=== PATIENT | male | born 1950 | race Caucasian/White ===

== ENCOUNTER 2017-07-03 14:40 | Emergency (ER) | payer MEDICARE ==
[2017-07-03] MEDS ORDERED: 0.9 % SODIUM CHLORIDE 1000ML 1,000 ML IV PRN (15:23)
[2017-07-03 15:59] LABS: BASO % 0.6 % (0-6); EOS % 0.6 % (0-6); GRAN % 66.5 % (47-80); HEMOGLOBIN 16.6 gm/dl (14.0-18.0); LYMPH % 21.8 % (16-45); MEAN CELL VOLUME 84.6 fl (81-97); MEAN CORPUSCULAR HEMOGLOBIN 30.5 pg (27-33); MEAN CORPUSCULAR HGB CONC 36.1 g/dl (32-36); MEAN PLATELET VOLUME 9.6 fl (7.4-10.4); MONO % 10.5 % (0-9); PLATELET COUNT 228 K/uL (130-400); RED BLOOD COUNT 5.44 M/uL (4.40-5.70); RED CELL DISTRIBUTION WIDTH 14.3 % (11.5-14.5); WHITE BLOOD COUNT W/O DIFF 5.4 K/uL (4.2-12.2)
[2017-07-03 16:03] LABS: URINE APPEARANCE CLEAR; URINE BILIRUBIN NEGATIVE (NEGATIVE); URINE BLOOD NEGATIVE (NEGATIVE); URINE COLOR YELLOW; URINE GLUCOSE (UA) NEGATIVE (NEGATIVE); URINE KETONE TRACE (NEGATIVE); URINE LEUKOCYTE ESTERASE NEGATIVE (NEGATIVE); URINE NITRITE NEGATIVE (NEGATIVE); URINE PROTEIN TRACE (NEGATIVE); URINE UROBILINOGEN 0.2 E.U./dL (0.20 - 1.00)
[2017-07-03 16:13] LABS: URINE EPITHELIAL CELLS 0 - 2 (FEW); URINE RBC 0 - 2 (NONE SEEN); URINE WBC 0 - 2 (0-2/hpf)
[2017-07-03 16:14] LABS: URINE BACTERIA FEW; URINE CALCIUM OXALATE CRYSTALS 3+ /hpf; URINE MUCUS LIGHT
[2017-07-03 16:27] LABS: BLOOD UREA NITROGEN 22 mg/dL (8-23); CREATININE 0.7 mg/dL (0.7-1.2); EST GLOMERULAR FILTRATION RATE > 60 mL/min
[2017-07-03 16:28] LABS: TOTAL PROTEIN 8.7 g/dL (6.6-8.7)
[2017-07-03 16:30] LABS: GLUCOSE,RANDOM 107 mg/dL (74-109)
[2017-07-03 16:32] LABS: ALBUMIN 5.3 g/dL (4.0-5.0); ALKALINE PHOSPHATASE 119 U/L (40-129); ALT/SGPT 99 U/L (<41); AST/SGOT 60 U/L (10.0-50.0); LIPASE 30 U/L (13-60)
[2017-07-03 16:35] LABS: BILIRUBIN,DIRECT < 0.2 mg/dL (0-0.3)
--- NOTE | 2017-07-03 19:29 | Emergency Department Record ---
History of Present Illness - General Chief Complaint: Abdominal Pain Stated Complaint: ABD PAIN Time Seen by Provider: 07/03/17 15:17 Source: Patient, RN notes reviewed Mode of Arrival: Wheelchair - History of Present Illness Initial Comments: Discussed case with Dr. Hassan and because of the diarrhea not a complete bowl obstruction and will decided clinically on his disposition. patient wants to go home. No vomiting today. Patient has stopped the doxy 2 days already and infectious disease told him to only stay off the doxy only 2 days. Discussed risks of going home and he wants to go home. return if worse Onset/Timin -: Days(s) Location: Diffuse Severity: Moderate Quality: Sharp Consistency: Intermittent Improves With: Nothing Worsens With: Nothing Associated Symptoms: Diarrhea Treatments Prior to Arrival: Antacids - Related Data Allergies Allergy/AdvReac Type Severity Reaction Status Date / Time wool Allergy Intermediate Hives Verified 07/03/17 14:50 cephalexin AdvReac Intermediate RASH Verified 07/03/17 14:50 levofloxacin [From Levaquin] AdvReac Intermediate RASH Verified 07/03/17 14:50 Penicillins AdvReac Intermediate RASH Verified 07/03/17 14:50 Sulfa (Sulfonamide AdvReac Intermediate RASH Verified 07/03/17 14:50 Antibiotics) methadone AdvReac Double Verified 07/03/17 14:50 Vision miconazole nitrate AdvReac RASH Verified 07/03/17 14:50 [From Neosporin AF] Travel Screening - Travel/Exposure Within Last 30 Days Have you traveled within the last 30 days?: No - Travel/Exposure Within Last Year Have you traveled outside the [place] in the last year?: No - Additonal Travel Details Have you been exposed to anyone with a communicable illness?: No - Travel Symptoms Symptom Screening: None Review of Systems Reviewed: No additional complaints except as noted below Constitutional: Reports: As per HPI. Denies: Chills, Fever, Malaise, Night sweats, Weakness, Weight change Eyes: Reports: As per HPI. Denies: Eye discharge, Eye pain, Photophobia, Vision change ENT: Reports: As per HPI. Denies: Congestion, Dental pain, Ear pain, Epistaxis , Hearing loss, Throat pain Respiratory: Reports: As per HPI. Denies: Cough, Dyspnea, Hemoptysis, Stridor, Wheezes Cardiovascular: Reports: As per HPI. Denies: Arrhythmia, Chest pain, Dyspnea on exertion, Edema, Murmurs, Orthopnea, Palpitations, Paroxysmal nocturnal dyspnea, Rheumatic Fever, Syncope Endocrine: Reports: As per HPI. Denies: Fatigue, Heat or cold intolerance, Polydipsia, Polyuria Gastrointestinal: Reports: As per HPI, Abdominal pain, Diarrhea. Denies: Constipation, Hematemesis, Hematochezia, Melena, Nausea, Vomiting Genitourinary: Reports: As per HPI. Denies: Dysuria, Frequency, Hematuria, Incontinence, Retention, Testicular pain, Testicular mass, Urgency Musculoskeletal: Reports: As per HPI. Denies: Arthralgia, Back pain, Gout, Joint swelling, Myalgia, Neck pain Skin: Reports: As per HPI. Denies: Bruising, Change in color, Change in hair/ nails, Lesions, Pruritus, Rash Neurological: Reports: As per HPI. Denies: Abnormal gait, Confusion, Headache, Numbness, Paresthesias, Seizure, Tingling, Tremors, Vertigo, Weakness Psychiatric: Reports: As per HPI. Denies: Anxiety, Auditory hallucinations, Depression, Homicidal thoughts, Suicidal thoughts, Visual hallucinations Hematological/Lymphatic: Reports: As per HPI. Denies: Anemia, Blood Clots, Easy bleeding, Easy bruising, Swollen glands Past Medical History - SOCIAL HISTORY Smoking Status: Former smoker Alcohol Use: None Drug Use Detail:: Marijuana - RESPIRATORY Hx Respiratory Disorders: Yes Hx Asthma: Yes Hx COPD: Yes (emphysema) Hx Sleep Apnea: Yes (cannot use it) - CARDIOVASCULAR Hx Cardio Disorders: Yes Hx CHF: Yes (>10 years ago) Hx Edema: Yes (right leg swells) Hx Hypertension: Yes Hx Coronary Artery Disease: Yes Comment:: hyperlipidemia - NEURO Hx Neuro Disorders: Yes Hx Headaches: Yes (concussion) Hx Weakness: Yes (arron shoulders) - GI Hx GI Disorders: Yes Hx Reflux: Yes Hx Rectal Bleeding: Yes (hemorrhoids) Comment:: hemorrhoids - Hx Genitourinary Disorders: Yes Hx Bladder Problem: Yes (?blood in urine; urinary inc.) Hx Prostate Problems: Yes (turp) - ENDOCRINE Hx Endocrine Disorders: No - MUSCULOSKELETAL Hx Musculoskeletal Disorders: Yes Hx Arthritis: Yes Hx Gout: Yes - PSYCH Hx Psych Problems: Yes Hx Anxiety: Yes Hx Depression: Yes - HEMATOLOGY/ONCOLOGY Hx Hematology/Oncology Disorders: Yes Hx Cancer: Yes (skin) Hx Blood Transfusions: Yes Family Medical History Any Significant Family History?: Yes Family Hx Comment (NOT TO BE USED IN PLACE OF ITEMS BELOW): cad; cancer; brother found ?mi?; age 42 Physical Exam - General General Appearance: Alert, Oriented x3, Cooperative, Mild distress - Head Head exam: Normal inspection - Eye Eye exam: Normal appearance, PERRL Pupils: Normal accommodation - ENT ENT exam: Normal exam, Mucous membranes moist, Normal external ear exam, Normal orophraynx, TM's normal bilaterally Ear exam: Normal external inspection. negative: External canal tenderness Nasal Exam: Normal inspection. negative: Discharge, Sinus tenderness Mouth exam: Normal external inspection, Tongue normal Teeth exam: Normal inspection. negative: Dental caries Throat exam: Normal inspection. negative: Tonsillar erythema, Tonsillar exudate - Neck Neck exam: Normal inspection, Full ROM. negative: Tenderness - Respiratory Respiratory exam: Normal lung sounds bilaterally. negative: Respiratory distress - Cardiovascular Cardiovascular Exam: Regular rate, Normal rhythm, Normal heart sounds - GI/Abdominal GI/Abdominal exam: Soft, Normal bowel sounds, Tenderness (mild left upper quad pain) - Rectal Rectal exam: Deferred - exam: Deferred - Extremities Extremities exam: Normal inspection, Full ROM, Normal capillary refill. negative: Tenderness - Back Back exam: Reports: Normal inspection, Full ROM. Denies: Muscle spasm, Rash noted, Tenderness - Neurological Neurological exam: Alert, Normal gait, Oriented X3, Reflexes normal - Psychiatric Psychiatric exam: Normal affect, Normal mood - Skin Skin exam: Dry, Intact, Normal color, Warm Course Vital Signs 07/03/17 07/03/17 07/03/17 15:01 17:47 19:06 Temperature 98.1 F 97.9 F Pulse Rate 71 Pulse Rate [ 77 76 Pulse Ox Probe] Respiratory 20 18 20 Rate Blood Pressure 157/102 Blood Pressure 171/105 [Left Arm] Blood Pressure 155/91 [Right Arm] Pulse Ox 97 97 98 Medical Decision Making - Lab Data Result diagrams: 07/03/17 15:45 07/03/17 15:45 Lab Results 07/03/17 07/03/17 07/03/17 Range/Units 15:45 15:45 15:45 WBC 5.4 (4.2-12.2) K/uL RBC 5.44 (4.40-5.70) M/uL Hgb 16.6 (14.0-18.0) gm/dl Hct 46.0 (42.0-52.0) % MCV 84.6 (81-97) fl MCH 30.5 (27-33) pg MCHC 36.1 H (32-36) g/dl RDW 14.3 (11.5-14.5) % Plt Count 228 (130-400) K/uL MPV 9.6 (7.4-10.4) fl Gran % 66.5 (47-80) % Lymphocytes % 21.8 (16-45) % Monocytes % 10.5 H (0-9) % Eosinophils % 0.6 (0-6) % Basophils % 0.6 (0-6) % Sodium 142 (136-145) mmol/L Potassium 3.5 (3.4-4.5) mmol/L Chloride 100 (98-107) mmol/L Carbon Dioxide 28.0 (22-29) mmol/L Anion Gap 14.0 (7-16) BUN 22 (8-23) mg/dL Creatinine 0.7 (0.7-1.2) mg/dL Estimated GFR > 60 mL/min Random Glucose 107 (74-109) mg/dL Calcium 10.3 H (8.8-10.2) mg/dL Total Bilirubin 0.90 (0.2-1.0) mg/dL Direct Bilirubin < 0.2 (0-0.3) mg/dL AST 60 H (10.0-50.0) U/L ALT 99 H (<41) U/L Alkaline Phosphatase 119 (40-129) U/L Total Protein 8.7 (6.6-8.7) g/dL Albumin 5.3 H (4.0-5.0) g/dL Lipase 30 (13-60) U/L Urine Color Yellow Urine Appearance Clear Urine pH 5.5 (5.0-8.0) Ur Specific [place] >= 1.030 (1.002-1.030) Urine Protein Trace H (NEGATIVE) Urine Glucose (UA) Negative (NEGATIVE) Urine Ketones Trace H (NEGATIVE) Urine Blood Negative (NEGATIVE) Urine Nitrite Negative (NEGATIVE) Urine Bilirubin Negative (NEGATIVE) Urine Urobilinogen 0.2 (0.20 - 1.00) E.U./dL Ur Leukocyte Esterase Negative (NEGATIVE) Urine RBC 0 - 2 (NONE SEEN) Urine WBC 0 - 2 (0-2/hpf) Ur Epithelial Cells 0 - 2 (FEW) Calcium Oxalate Crystal 3+ /hpf Urine Bacteria Few Urine Mucus Light Disposition Clinical Impression: Adynamic ileus, Partial small bowel obstruction Disposition: Home, Self-Care Condition: (1) Good Instructions: Acute Diarrhea (ED) Additional Instructions: follow up with family Dr. Mcghee in 2-9 days if worse return to ED. clear liquids today Bannanas, rice, applesauce yogurt and toast tomorrow. norco for pain which he already has hold doxy for one more day Time of Disposition: 19:43 Quality - Quality Measures Quality Measures: N/A - Blood Pressure Screening Does Patient Have Any of the Following: No Blood Pressure Classification: Hypertensive Reading Systolic Measurement: 157 Diastolic Measurement: 102 Screening for High Blood Pressure: Patient Exclusion, Hx of HTN [G9744]
--- NOTE | 2017-07-03 19:32 | CT SCAN REPORT ---
EXAM: CT SCAN ABDOMEN/PELVIS W CONTRAST HISTORY: GENERALIZED ABDOMINAL PAIN FOR TWO DAYS. PRIOR APPENDECTOMY. TECHNIQUE: Axial CT scan of the abdomen and pelvis performed following both oral and IV contrast administration utilizing a dose of 100 mL of Omnipaque-300 as the IV contrast. COMPARISON: No prior CT with which to compare. FINDINGS: There are probably some tiny, relatively noncalcified gallstones in the dependent portion of the gallbladder. These could also be a few tiny gallbladder polyps. No additional findings to suggest acute cholecystitis currently evident. Metallic battery pack along the subcutaneous tissues of the right lateral mid abdominal wall with an associated wire extending into the spinal canal. There is mild diffuse fatty infiltration of the liver. There is a single tiny low-attenuation focus in the liver measuring only about 8 mm in size with a CT density of minus 1 consistent with a small hepatic cyst. No definite splenic, adrenal, pancreatic, or right renal mass evident. There is a small low-attenuation mass in the upper pole of the left kidney measuring only about 10 mm in size. This has an indeterminant CT density of 31 and may just be a slightly dense renal cyst. However, if not previously documented as a cyst, follow-up non-emergent MRI of the kidneys would be suggested in an effort to confirm. Surgical clips right side of the scrotum and on the scanogram probably also seen in the left side of the scrotum, presumably from prior vasectomy. Mild diverticulosis left side of the colon but no diverticulitis evident. Appendix not identified consistent with the surgical history. There is a tiny amount of free fluid in the right lower quadrant. This is nonspecific. Some apparent bullous disease in the right lung base and clinical correlation as to emphysema suggested. No free intraperitoneal air identified. Some degenerative change in the facets of the lumbar spine. Mild lumbar curve convex to the left. Oral contrast given has passed from the stomach into the small bowel but not as yet reached the distal small bowel. There is some mild disparity in caliber of the small bowel, being slightly dilated proximally up to about 3.2 cm, whereas the more distal ileum is nondistended. There is questionably a relative transition point far anteriorly in the mid abdomen. No obvious mass or other abnormality seen but, given the history of prior surgery, possibility of adhesions is raised. IMPRESSION: 1. POST-OP APPENDECTOMY, BILATERAL VASECTOMY, AND PRESUMED PAIN STIMULATOR DEVICE WITH THE ASSOCIATED WIRE EXTENDING INTO THE SPINAL CANAL. 2. MILD DIFFUSE FATTY INFILTRATION OF THE LIVER WITH A SINGLE SMALL SUBCENTIMETER LEFT LOBE HEPATIC CYST. 3. SMALL INDETERMINATE 1 CM MASS SUPERIORLY IN THE LEFT KIDNEY MAY JUST BE A RELATIVELY DENSE CYST. FOLLOW-UP NON-EMERGENT RENAL MRI SUGGESTED. 4. DEGENERATIVE CHANGE IN THE SPINE. 5. SMALL AMOUNT OF NONSPECIFIC FREE FLUID RIGHT LOWER QUADRANT. NO FREE AIR EVIDENT. 6. SMALL BOWEL DISPARITY, SOMEWHAT DILATED PROXIMALLY AND NONDILATED DISTALLY WITH PROBABLY A POINT OF TRANSITION IN THE MID ABDOMEN ANTERIORLY SUGGESTING A COMPONENT OF A SMALL BOWEL OBSTRUCTION, PERHAPS ON THE BASIS OF ADHESIONS. 7. MILD DIVERTICULOSIS LEFT SIDE OF THE COLON WITH NO DIVERTICULITIS EVIDENT. JOB NUMBER: [id number] [facility]
== END 2017-07-03 20:05 | disposition home or self-care (01) ==
LOC: ER 14:40
DX: K56.0 Paralytic ileus (principal); R19.7 Diarrhea, unspecified; Z98.890 Other specified postprocedural states
CPT/HCPCS: 99284 ×2; 83690; 85025; 80076; 80048; 81001; 87427; 87493; 74177; Q9967

== ENCOUNTER 2017-10-01 01:46 | Emergency (ER) | payer MEDICARE, BC ==
[2017-10-01] MEDS ORDERED: KETOROLAC 30 MG/ML VIAL IVP ONE (02:01)
--- NOTE | 2017-10-01 02:06 | Emergency Department Record ---
History of Present Illness - General Chief Complaint: Fever Stated Complaint: FEVER Time Seen by Provider: 10/01/17 01:48 Source: Patient Mode of Arrival: Ambulatory Limitations: No limitations - History of Present Illness Initial Comments: 67 yo male presents to ED for evaluation of fever symptoms and non-productive cough symptoms this morning. Patient also reports intermittent nausea and vomiting symptoms. Patient reports that he is currently being treated for C. Diff and UTI with Vancomycin, Macrobid, and Doxycycline per his ID provider at [facility]. Patient reports body aches and headache symptoms, denies stiff neck. Patient was seen earlier by his PCP, underwent negative CXR and influenza. MD Complaint: Fever Onset/Timin -: Days(s) Maximum Temperature: 101.3 F Temperature Source: Oral Context: Recent antibiotic use Associated Symptoms: Vomiting, Diarrhea, Headache, Nausea Treatments Prior to Arrival: None - Related Data Home Medications Medication Instructions Recorded Confirmed Last Taken Cyclobenzaprine HCl [Flexeril] 5 mg PO DAILY 10/01/17 10/01/17 Unknown Allergies Allergy/AdvReac Type Severity Reaction Status Date / Time wool Allergy Intermediate Hives Unverified 09/23/17 10:43 cephalexin AdvReac Intermediate RASH Unverified 09/23/17 10:43 levofloxacin [From Levaquin] AdvReac Intermediate RASH Unverified 09/23/17 10:43 Penicillins AdvReac Intermediate RASH Unverified 09/23/17 10:43 Sulfa (Sulfonamide AdvReac Intermediate RASH Unverified 09/23/17 10:43 Antibiotics) methadone AdvReac Double Unverified 09/23/17 10:43 Vision miconazole nitrate AdvReac RASH Unverified 09/23/17 10:43 [From Neosporin AF] Travel Screening - Travel/Exposure Within Last 30 Days Have you traveled within the last 30 days?: No - Travel Symptoms Symptom Screening: Weakness, Diarrhea, Vomiting, Chills Review of Systems Constitutional: Reports: Chills, Fever, Malaise, Weakness. Denies: Night sweats Eyes: Denies: Eye discharge, Eye pain ENT: Denies: Congestion, Ear pain Respiratory: Reports: Cough. Denies: Dyspnea Cardiovascular: Denies: Chest pain, Dyspnea on exertion Endocrine: Reports: Fatigue. Denies: Heat or cold intolerance Gastrointestinal: Reports: Nausea, Vomiting. Denies: Abdominal pain Genitourinary: Denies: Incontinence, Retention Musculoskeletal: Denies: Arthralgia, Back pain, Gout, Joint swelling Skin: Denies: Bruising, Change in color Neurological: Reports: Headache. Denies: Abnormal gait, Confusion, Seizure Psychiatric: Denies: Anxiety Hematological/Lymphatic: Denies: Anemia, Blood Clots Past Medical History - SOCIAL HISTORY Smoking Status: Former smoker Alcohol Use: None Drug Use: None - RESPIRATORY Hx Respiratory Disorders: Yes Hx Asthma: Yes Hx COPD: Yes (emphysema) Hx Sleep Apnea: Yes (cannot use it) - CARDIOVASCULAR Hx Cardio Disorders: Yes Hx CHF: Yes (>10 years ago) Hx Edema: Yes (right leg swells) Hx Hypertension: Yes Hx Coronary Artery Disease: Yes Comment:: hyperlipidemia - NEURO Hx Neuro Disorders: Yes Hx Headaches: Yes (concussion) Hx Weakness: Yes (arron shoulders) - GI Hx GI Disorders: Yes Hx Reflux: Yes Hx Rectal Bleeding: Yes (hemorrhoids) Comment:: hemorrhoids - Hx Genitourinary Disorders: Yes Hx Bladder Problem: Yes (?blood in urine; urinary inc.) Hx Prostate Problems: Yes (turp) - ENDOCRINE Hx Endocrine Disorders: No - MUSCULOSKELETAL Hx Musculoskeletal Disorders: Yes Hx Arthritis: Yes Hx Gout: Yes - PSYCH Hx Psych Problems: Yes Hx Anxiety: Yes Hx Depression: Yes - HEMATOLOGY/ONCOLOGY Hx Hematology/Oncology Disorders: Yes Hx Cancer: Yes (skin) Hx Blood Transfusions: Yes Family Medical History Any Significant Family History?: Yes Family Hx Comment (NOT TO BE USED IN PLACE OF ITEMS BELOW): cad; cancer; brother found ?mi?; age 42 Physical Exam - General General Appearance: Alert, Oriented x3, Cooperative, Moderate distress Limitations: No limitations - Head Head exam: Atraumatic, Normocephalic, Normal inspection Head exam detail: negative: Abrasion, Contusion, Little's sign, General tenderness, Hematoma, Laceration - Eye Eye exam: Normal appearance. negative: Conjunctival injection, Periorbital swelling, Periorbital tenderness, Scleral icterus - ENT Ear exam: negative: Auricular hematoma, Auricular trauma Nasal Exam: negative: Active bleeding, Discharge, Dried blood, Foreign body Mouth exam: negative: Drooling, Laceration, Tongue elevation - Neck Neck exam: Normal inspection. negative: Meningismus, Tenderness - Respiratory Respiratory exam: Normal lung sounds bilaterally. negative: Rales, Respiratory distress, Rhonchi, Stridor - Cardiovascular Cardiovascular Exam: Regular rate, Normal rhythm, Normal heart sounds - GI/Abdominal GI/Abdominal exam: Soft. negative: Rebound, Rigid, Tenderness - Rectal Rectal exam: Deferred - exam: Deferred - Extremities Extremities exam: Normal inspection. negative: Calf tenderness, Pedal edema, Tenderness - Back Back exam: Denies: CVA tenderness (R), CVA tenderness (L) - Neurological Neurological exam: Alert, Normal gait, Oriented X3 - Psychiatric Psychiatric exam: Normal affect, Normal mood - Skin Skin exam: Normal color. negative: Abrasion Type of lesion: negative: abrasion Course Vital Signs 10/01/17 01:47 Temperature 99.0 F Pulse Rate 96 H Respiratory 18 Rate Blood Pressure 167/101 Pulse Ox 97 - Reevaluation(s) Reevaluation #1: 10/01/17 02:07 CXR 09/30/17: No acute process Influenza 09/30/17: Negative Reevaluation #2: 10/01/17 02:51 Labs reviewed, WBC 17.8 with 85% neutrophils, labs are otherwise grossly unremarkable for an acute process. UA pending Patient is back from CT imaging, reports improvement in his symptoms. Reevaluation #3: 10/01/17 03:39 UA reviewed and appears negative for infections. CT Abdomen and Pelvis: No acute process Distended GB Bladder wall thickening Cholelithiasis Reevaluation #4: 10/01/17 03:52 Case was discussed with Dr. Chandler, will accept transfer at this time for further evaluation of the patient's fever symptoms. Patient was reassessed and updated on all results, has no meningeal signs on repeat examination. Will hold further antibiotics at this time as there is no clear source identified and he is already taking Vanco, Doxy, and Macrobid. Dr. Chandler in agreement with the plan of care as discussed. Medical Decision Making - Lab Data Result diagrams: 10/01/17 02:10 10/01/17 02:11 Disposition Disposition: Transfer Clinical Impression: C. difficile colitis Fever Qualifiers: Fever type: unspecified Qualified Code(s): R50.9 - Fever, unspecified Disposition: Acute Care Hospital Transfer Transfer To: of Reason For Transfer: Fever, ID consultation Accepting Physician: Ramesh Time Discussed w/Accepting Physician: 03:44 Condition: (2) Stable Forms: Patient Portal Access Time of Disposition: 03:45 Quality - Quality Measures Quality Measures: N/A - Blood Pressure Screening Does Patient Have Any of the Following: Active Dx of HTN Blood Pressure Classification: Hypertensive Reading Systolic Measurement: 167 Diastolic Measurement: 101 Screening for High Blood Pressure: Patient Exclusion, Hx of HTN [G9744]
[2017-10-01 02:10] LABS: HEMATOCRIT 44.1 % (42.0-52.0); HEMOGLOBIN 15.4 gm/dl (14.0-18.0); MEAN CORPUSCULAR HEMOGLOBIN 30.7 pg (27-33); MEAN CORPUSCULAR HGB CONC 34.9 g/dl (32-36); MEAN PLATELET VOLUME 10.4 fl (7.4-10.4); PLATELET COUNT 221 K/uL (130-400); RED BLOOD COUNT 5.01 M/uL (4.40-5.70); RED CELL DISTRIBUTION WIDTH 14.8 % (11.5-14.5); WHITE BLOOD COUNT W/O DIFF 17.8 K/uL (4.2-12.2)
[2017-10-01] MEDS: 0.9 % SODIUM CHLORIDE 1000ML 1,000 ML IV SCH ×2 (02:11→03:57)
[2017-10-01 02:18] LABS: BLOOD UREA NITROGEN 23 mg/dL (8-23); CREATININE 0.9 mg/dL (0.7-1.2); EST GLOMERULAR FILTRATION RATE > 60 mL/min; TOTAL PROTEIN 7.6 g/dL (6.6-8.7)
[2017-10-01 02:20] LABS: GLUCOSE,RANDOM 108 mg/dL (74-109)
[2017-10-01 02:23] LABS: ALB/GLOB RATIO 1.5 (1.1-1.8); ALBUMIN 4.5 g/dL (4.0-5.0); ALKALINE PHOSPHATASE 96 U/L (40-129); ALT/SGPT 32 U/L (<41); AST/SGOT 24 U/L (10.0-50.0)
[2017-10-01 03:30] LABS: URINE APPEARANCE CLEAR; URINE BILIRUBIN NEGATIVE (NEGATIVE); URINE BLOOD TRACE-I (NEGATIVE); URINE COLOR YELLOW; URINE GLUCOSE (UA) NEGATIVE (NEGATIVE); URINE KETONE NEGATIVE (NEGATIVE); URINE LEUKOCYTE ESTERASE TRACE (NEGATIVE); URINE NITRITE NEGATIVE (NEGATIVE); URINE PROTEIN TRACE (NEGATIVE); URINE UROBILINOGEN 0.2 E.U./dL (0.20 - 1.00)
[2017-10-01 03:36] LABS: URINE EPITHELIAL CELLS 0 - 2 (FEW); URINE OTHER CRYSTALS NONE SEEN /hpf; URINE RBC 0 - 2 (NONE SEEN)
[2017-10-01 03:37] LABS: URINE BACTERIA FEW
[2017-10-01] MEDS ORDERED: 0.9 % SODIUM CHLORIDE 1000ML 1,000 ML IV SCH (04:00)
--- NOTE | 2017-10-02 09:53 | CT SCAN REPORT ---
EXAM: EMERGENCY CT OF THE ABDOMEN AND PELVIS WITH CONTRAST HISTORY: GENERALIZED ABDOMINAL PAIN FOR SEVERAL DAYS. PRIOR APPENDECTOMY AND SPINAL STIMULATOR IN PLACE. TECHNIQUE: Axial CT scan of the abdomen and pelvis was performed following the intravenous administration of 100 ml of Omnipaque 300 as the IV contrast. No oral contrast was utilized at the referring physician's request. A preliminary report was provided by [facility]. Comparison: CT of the abdomen and pelvis 07/03/17. FINDINGS: There again are likely tiny gallstones within the dependent portion of the gallbladder. These were noted previously as well. No significant distention of the gallbladder evident and no adjacent pericholecystic inflammatory type changes seen. No dilatation of the biliary tree evident. There again appears to be a single small cyst in the left lobe of the liver previously measured at about 8 mm in size, it is at about 8 mm today as well. No new hepatic mass evident. The previously noted small low attenuation mass upper pole left kidney measuring about 10 mm is again seen today, again measuring about 1 cm in size with a CT density of 11 consistent with a small cyst. No definite splenic, adrenal, or pancreatic mass identified. There is probably a surgical clip in the right side of the scrotum presumably related to prior vasectomy. 4.9 cm in both AP and transverse diameters. Mild diffuse prominence of the bladder wall is nonspecific and may just be due to incomplete distention although could be related to a relative bladder outlet obstruction due to the prostate as well. Moderate diverticulosis left side of the colon, but no diverticulitis evident. The appendix is not identified consistent with the surgical history. Tiny periumbilical anterior abdominal wall hernia containing adipose tissue, but no bowel. Bullous disease in the lung bases consistent with emphysema. No free intraperitoneal air or free intraperitoneal fluid identified. A spinal stimulator device is again seen in the subcutaneous tissues of the right lateral abdominal wall with the associated wire extending into the upper lumbar spinal canal and ascending into the lower thoracic level as before. Prominent facet joint arthropathy in the lower lumbar spine. IMPRESSION: 1. APPARENT CHOLELITHIASIS BEFORE. NO ADDITIONAL FINDINGS TO SUGGEST ACUTE CHOLECYSTITIS. 2. SMALL HEPATIC CYST BEFORE. 3. SMALL UPPER POLE LEFT RENAL CYST. 4. POSTOP APPENDECTOMY AND SPINAL CORD STIMULATOR IN PLACE. 5. MILD ENLARGEMENT OF THE PROSTATE. 6. DIVERTICULOSIS LEFT SIDE OF THE COLON, BUT NO DIVERTICULITIS EVIDENT. JOB NUMBER: [id number] [facility]
== END 2017-10-01 04:08 | disposition short-term general hospital (02) ==
LOC: ER 01:46
DX: A04.72 Enterocolitis due to Clostridium difficile, not specified as recurrent (principal); R50.81 Fever presenting with conditions classified elsewhere; R51 Headache; R11.2 Nausea with vomiting, unspecified; J44.9 Chronic obstructive pulmonary disease, unspecified; I10 Essential (primary) hypertension; I50.9 Heart failure, unspecified; Z87.891 Personal history of nicotine dependence
CPT/HCPCS: 99285 ×2; 96374; 96361; 80053; 81001; 85027; 74177; Q9967; J1885; J7030

== ENCOUNTER 2019-03-26 14:50 | Day surgery (SDC) | payer MEDICARE ==
[2019-03-26] MEDS ORDERED: MIDAZOLAM HCL 2MG/2ML VIAL IV ONE (14:51)
[2019-03-26] MEDS ORDERED: PROPOFOL 10 MG/ML VIAL IV ONE (14:51)
[2019-03-26] MEDS ORDERED: LIDOCAINE 2% MDV (20MG/ML) 20ML VIAL IV ONE (14:51)
--- NOTE | 2019-03-27 15:42 | Operative Note ---
OPERATION: COLONOSCOPY with cold snare polypectomy. PREOPERATIVE DIAGNOSIS: Personal history of hyperplastic colon polyps. POSTOPERATIVE DIAGNOSIS: Cecal polyp and sigmoid diverticulosis. PREPARATION QUALITY: Excellent. ESTIMATED BLOOD LOSS: Minimum. SPECIMENS: Cecal polyp. COMPLICATIONS: None apparent. PROCEDURE: After informed consent was obtained from the patient, he was placed in the left lateral decubitus position in the endoscopy suite, sedated and monitored by the department of anesthesia. Digital rectal exam was unremarkable. A well-lubricated [id number] colonoscope was inserted into the rectum and advanced to the cecum. In the cecum there was a 4-5 mm sessile polyp removed with a cold snare with minimal bleeding noted. The polyp was retrieved. The remainder of the cecum, ascending colon, transverse colon, and descending colon were free of inflammatory changes, mass lesions, or polyps. The sigmoid colon demonstrated mild diverticular changes. No polyps were seen in this area. The rectum was unremarkable in forward and J-turn views. The endoscope was straightened, the rectal ampulla deflated, and the endoscope was removed. RECOMMENDATIONS: The patient should resume his medications and diet. He should follow a high-fiber diet if possible. He will require repeat colonoscopy in 5 years. As always, thank you for allowing me to participate in the healthcare of your patients. NABILA
== END 2019-03-26 16:00 | disposition home or self-care (01) ==
LOC: HOP 14:50
PROVIDERS: ATTEND Internal Medicine Gastroenterology
DX: Z12.11 Encounter for screening for malignant neoplasm of colon (principal); Z86.010 Personal history of colon polyps; D12.0 Benign neoplasm of cecum; K57.30 Diverticulosis of large intestine without perforation or abscess without bleeding; I10 Essential (primary) hypertension; E78.00 Pure hypercholesterolemia, unspecified; G25.81 Restless legs syndrome; H40.9 Unspecified glaucoma

== ENCOUNTER 2019-05-07 07:53 | Day surgery (SDC) | payer MEDICARE ==
[~2019-05-07 07:53] MED LIST: ACETAMINOPHEN 1,000 MG/100 ML BTL IVPB ONE; CLINDAMYCIN 600MG/50ML PREMIX 600 MG/50 ML BAG IVPB ONE
[2019-05-07] MEDS ORDERED: FENTANYL PF 100MCG/2ML VIAL IV ONE (07:54)
[2019-05-07] MEDS ORDERED: MIDAZOLAM HCL 2MG/2ML VIAL IV ONE (07:54)
[2019-05-07] MEDS ORDERED: LIDOCAINE 2% MDV (20MG/ML) 20ML VIAL IV ONE (07:54)
[2019-05-07] MEDS ORDERED: PROPOFOL 10 MG/ML VIAL IV ONE (07:54)
[2019-05-07] MEDS ORDERED: RINGERS SOLUTION,LACTATED 1,000 ML IV ONE (08:39)
[2019-05-07] MEDS ORDERED: LIDOCAINE 1% MPF 100MG/10ML STERILE-PAK AMPULE SQ ONE (11:31)
--- NOTE | 2019-05-11 12:21 | Operative Note ---
DATE OF SURGERY: 05/07/2019 SURGEON: Shashank Orr DO PREOPERATIVE DIAGNOSIS: Trigger finger of the right index finger. POSTOPERATIVE DIAGNOSIS: Trigger finger of the right index finger. OPERATION: Tenotomy A1 dariel right index finger using 3.5 loop magnification. DESCRIPTION OF PROCEDURE: This 68-year-old male was taken to the operating room and placed in the supine position on the operating room table. Then 1% Xylocaine plain was used as a local anesthetic. After prepping the right upper extremity with Hibiclens and draping in the usual sterile fashion, approximately 2-3 mL of 1% Xylocaine plain was injected into the site on the palmar aspect of the right palm overlying the 2nd metacarpal head. After satisfactory anesthesia, a longitudinal incision was made overlying the A1 dariel to the right index finger. Dissection was carried down through the skin and subcutaneous tissue. Hemostasis obtained with the electrocautery. The proximal edge of the A1 dariel was easily identified. Then with the entire A1 dariel exposed, it was incised from its proximal to its distal margin. The tendon itself appeared to be essentially normal other than mild bulbous appearance of the tendon but no discontinuity of the tendon was identified. The finger was moved through its range of motion without any catching or locking. The wound was irrigated and closed with interrupted 6-0 nylon suture. Sterile dressings were applied and the patient taken to the recovery room in satisfactory condition. GROSS PATHOLOGY: This patient demonstrated a nodularity of the sublimis tendon of the right index finger and with the A1 dariel opened, no catching of the finger was identified. NABILA
== END 2019-05-07 12:20 | disposition home or self-care (01) ==
LOC: SUR 07:53
PROVIDERS: ATTEND Orthopaedic Surgery
DX: M65.321 Trigger finger, right index finger (principal); I10 Essential (primary) hypertension; J44.9 Chronic obstructive pulmonary disease, unspecified; E78.00 Pure hypercholesterolemia, unspecified; N40.0 Benign prostatic hyperplasia without lower urinary tract symptoms; G25.81 Restless legs syndrome; H40.9 Unspecified glaucoma; G47.33 Obstructive sleep apnea (adult) (pediatric)
CPT/HCPCS: 26055; 01810; J3010; J3490; J7120